=== PATIENT | female | born 1995 ===

== ENCOUNTER 2016-12-27 23:22 | Emergency (ER) | payer SELFPAY ==
[2016-12-28 00:17] VITALS: BP 152/82; PULSE 67; RESP 18; TEMP 98.3
[2016-12-28] MEDS ORDERED: Bacitracin 500 Units/gm Oint Foilpak UD TOP ONE (00:31)
[2016-12-28] MEDS ORDERED: Amoxicillin-Clav 875-125 mg Tab PO STA (00:31)
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
[2016-12-28 00:36] VITALS: O2SAT 100
[2016-12-28] MEDS ORDERED: Amoxicillin-Clav 875-125 mg Tab PO ONE (00:36)
[2016-12-28] MEDS ORDERED: Bacitracin 500 Units/gm Oint Foilpak UD ONE (00:36)
== END 2016-12-28 01:11 | disposition home or self-care (01) ==
LOC: C.ER 23:22
DX: S51.852A Open bite of left forearm, initial encounter (principal); L03.114 Cellulitis of left upper limb; Y04.1XXA Assault by human bite, initial encounter